=== PATIENT | female | born 1985 | race Caucasian/White ===

== ENCOUNTER 2017-06-05 18:11 | Emergency (ER) | payer OTHER ==
[2017-06-05 18:27] VITALS: BP 103/70
--- NOTE | 2017-06-05 18:41 | UC ---
Ear Complaint HPI - HPI Summary HPI Summary: Patient presnts with complaints of ear pain and plugging and states that both ear are full, and plugged and she feels like she has to keep popping them She states that it started in her right ear and now its both. She also reports nasal plugging. She denies fever, chills, chest pain, dyspnea, cough, sputum production, chest pain, nausea, vomiting or diarrhea. - History of Current Complaint Chief Complaint: UCGeneralIllness Stated Complaint: EAR PAIN Time Seen by Provider: 06/05/17 18:29 Hx Obtained From: Patient Hx Last Menstrual Period: 05/29/17 ?: No Onset/Duration: Gradual Onset, Lasting Days Severity Initially: Mild Severity Currently: Moderate Aggravating Factors: Nothing - Allergies/Home Medications Allergies/Adverse Reactions: Allergies Allergy/AdvReac Type Severity Reaction Status Date / Time Mushrooms Allergy Swelling Uncoded 06/05/17 18:15 Home Medications: Home Medications Lurasidone(*) [Latuda] 40 mg PO DAILY 06/05/17 [History Confirmed 06/05/17] Phenylephrine HCl (Oral) [Nasal Decongestant] 10 mg PO 06/05/17 [History] clonazePAM TAB(*) [KlonoPIN TAB(*)] 0.5 mg PO BEDTIME PRN 06/05/17 [History Confirmed 06/05/17] PMH/Surg Hx/FS Hx/Imm Hx Previously Healthy: Yes - Surgical History Surgical History: Yes Surgery Procedure, Year, and Place: T & A age 13. [place] teeth extraction - Social History Lives: Alone Alcohol Use: Occasionally Substance Use Type: None Smoking Status (MU): Light Every Day Tobacco Smoker Type: Cigarettes Amount Used/How Often: 2-3 per day Length of Time of Smoking/Using Tobacco: 10 years Have You Smoked in the Last Year: No When Did the Patient Quit Smoking/Using Tobacco: 04/2013 - Immunization History Most Recent Influenza Vaccination: 2016 Most Recent Tetanus Shot: 10/1013 Most Recent Pneumonia Vaccination: none Review of Systems Constitutional: Negative Skin: Negative Eyes: Negative ENT: Ear Ache, Sinus Congestion Respiratory: Negative Cardiovascular: Negative Gastrointestinal: Negative Genitourinary: Negative Motor: Negative Is Patient Immunocompromised?: No All Other Systems Reviewed And Are Negative: Yes Physical Exam Triage Information Reviewed: Yes Appearance: Well-Appearing Vital Signs: Initial Vital Signs Temp 98.7 F 06/05/17 18:18 Pulse 104 06/05/17 18:18 Resp 16 06/05/17 18:18 BP 103/70 06/05/17 18:18 Pulse Ox 100 06/05/17 18:18 Vital Signs Reviewed: Yes Eye Exam: Normal ENT: Positive: TM bulging, TM dull, TM red Neck exam: Normal Neck: Positive: 1 Respiratory Exam: Normal Cardiovascular Exam: Normal Abdominal Exam: Normal Musculoskeletal Exam: Normal Neurological Exam: Normal Psychological Exam: Normal Skin Exam: Normal Ear Complaint Course/Dx - Course Course Of Treatment: Patient presents with ear pain and plugging, she had clinical evidence of otitis media, she was treated with zpk, and flonase. dischanged home in stable condition. I told her to but OTC decongestant, and follow up with PCP if no improvement. - Differential Dx/Diagnosis Differential Diagnosis/HQI/PQRI: Otitis Media Provider Diagnoses: otitis media Discharge - Discharge Plan Condition: Stable Disposition: HOME Prescriptions: Azithromycin TAB* [Zithromax TAB (Z-ELBERT) 250 mg #6 tabs] 250 mg PO DAILY #6 tab Fluticasone NASAL SPRAY 50MCG* [Flonase NASAL SPRAY 50MCG*] 2 spray BOTH NARES DAILY #1 btl Patient Education Materials: Otitis Media (ED) Referrals: Lupe Scott MD [Primary Care Provider] -
== END 2017-06-05 18:39 | disposition home or self-care (01) ==
LOC: UCEAST 18:11
DX: H66.90 Otitis media, unspecified, unspecified ear (principal); F17.210 Nicotine dependence, cigarettes, uncomplicated
CPT/HCPCS: 99212; G0463

== ENCOUNTER 2017-10-28 17:16 | Emergency (ER) | payer OTHER ==
[2017-10-28 17:49] VITALS: BP 118/70
--- NOTE | 2017-10-28 17:58 | UC ---
Dental HPI - HPI Summary HPI Summary: 32 year old with right lower dental pain. has temp crown and needs permanent one. called dentists and would not treat due to psych meds. pt has note from psych stating antibiotics are fine including amox, clinda, z pack and per pt took diflucan in the past after getting yeast from abx and tolerated well. here to get antibiotics for dental infection . no fever. no chills - History of Current Complaint Chief Complaint: UCDentalProblem Stated Complaint: TOOTH ACHE Time Seen by Provider: 10/28/17 17:35 Hx Obtained From: Patient Hx Last Menstrual Period: 10/12/17 Onset/Duration: Sudden Onset Severity: Moderate Pain Intensity: 8 - Allergies/Home Medications Allergies/Adverse Reactions: Allergies Allergy/AdvReac Type Severity Reaction Status Date / Time Mushrooms Allergy Swelling Uncoded 06/05/17 18:15 Home Medications: Home Medications lamoTRIgine TAB(*) [Lamictal TAB(*)] 200 mg PO DAILY 10/28/17 [History Confirmed 10/28/17] PMH/Surg Hx/FS Hx/Imm Hx Previously Healthy: Yes Psychological History: Bipolar Disorder - Surgical History Surgical History: Yes Surgery Procedure, Year, and Place: T & A age 13. [place] teeth extraction - Family History Known Family History: Positive: None - Social History Alcohol Use: None Substance Use Type: None Smoking Status (MU): Former Smoker Type: Cigarettes Amount Used/How Often: 2-3 per day Length of Time of Smoking/Using Tobacco: 10 years Have You Smoked in the Last Year: No When Did the Patient Quit Smoking/Using Tobacco: 04/2013 Cessation Counseling: Patient Advised to Stop - Immunization History Most Recent Influenza Vaccination: season Most Recent Tetanus Shot: 10/1013 Most Recent Pneumonia Vaccination: none Review of Systems ENT: Dental Pain Is Patient Immunocompromised?: No All Other Systems Reviewed And Are Negative: Yes Physical Exam Triage Information Reviewed: Yes Appearance: Well-Appearing, No Pain Distress, Well-Nourished Vital Signs: Initial Vital Signs Temp 98.5 F 10/28/17 17:46 Pulse 100 10/28/17 17:46 Resp 18 10/28/17 17:46 BP 118/70 10/28/17 17:46 Pulse Ox 99 10/28/17 17:46 Vital Signs Reviewed: Yes Eye Exam: Normal ENT Exam: Normal Dental: Positive: Percussion Tenderness @, Gross Decay/Caries @, Abscess @ Neck exam: Normal Respiratory Exam: Normal Cardiovascular Exam: Normal Dental Complaint Course/Dx - Course Course Of Treatment: read note from psych -- can give amox and no interaction. f/u with dentist. she requests diflucan and awarae of SE and will not use unless she needs - Differential Dx/Diagnosis Differential Diagnosis/Dx: Dental Abscess, Dental Caries, Fractured Tooth, Odontogenic Pain Provider Diagnoses: dental abscess Discharge - Sign-Out/Discharge Documenting (check all that apply): Discharge/Admit/Transfer - Discharge Plan Condition: Good Disposition: HOME Prescriptions: Amoxicillin PO (*) [Amoxicillin 500 MG CAP*] 500 mg PO TID #30 cap Fluconazole 150 MG (NF) [Diflucan 150 mg (NF)] 150 mg PO ONCE #1 tab Patient Education Materials: Dental Abscess (ED) Referrals: Lupe Scott MD [Primary Care Provider] - 4 Days - Billing Disposition and Condition Condition: GOOD Disposition: HOME Images Dental: 1 - temp cap tenderness and mild gum swelling with redness
== END 2017-10-28 18:00 | disposition home or self-care (01) ==
LOC: UCEAST 17:16
DX: K04.7 Periapical abscess without sinus (principal); F31.9 Bipolar disorder, unspecified; F17.210 Nicotine dependence, cigarettes, uncomplicated
CPT/HCPCS: 99212; G0463